=== PATIENT | female | born 1950 | race Caucasian/White ===

== ENCOUNTER 2020-07-26 09:38 | Day surgery (SDC) | payer MEDICARE, SELFPAY ==
[2020-07-22 15:35] VITALS: BMI 26.6
--- NOTE | 2020-07-24 12:37 | HO.ANESPROP2 ---
Documented by User: Alexa Bishop 07/24/20 12:38 HPI - Anesthesia Eval Consult details Narrative: 69yo F for Colonoscopy PMFSH Past Medical History Medical History Arthritis Cancer Elevated cholesterol Hepatitis HTN (hypertension) Thyroid disease Surgical History Surgical History H/O breast biopsy H/O: hysterectomy History of Hx of colonoscopy Social History Social History Smoking Status: Never smoker Use of substances other than those prescribed or required for medical reasons: No Have you been hit, kicked, punched, or otherwise hurt by someone within the past year? If so, by whom?: No Advance Directives Information Provided: No Recently lost weight without trying: No Meds Allergies Allergy/AdvReac Type Severity Reaction Status Date / Time niacin Allergy Hives Verified 07/22/20 15:43 atorvastatin [From Lipitor] AdvReac Muscle Verified 07/22/20 15:43 cramps ezetimibe [From Zetia] AdvReac Muscle Verified 07/22/20 15:43 cramps fenofibrate [From Tricor] AdvReac Muscle Verified 07/22/20 15:43 cramps pravastatin [From Pravachol] AdvReac Muscle Verified 07/22/20 15:43 cramps simvastatin [From Zocor] AdvReac Muscle Verified 07/22/20 15:43 cramps Home Medications Medication Instructions Recorded Confirmed Type calcium carbonate-vitamin D2 1 tab PO DAILY 07/22/20 07/22/20 History [Calcium + Vitamin D] cyclobenzaprine 10 mg PO TID PRN 07/22/20 07/22/20 History gabapentin 300 mg PO BID 07/22/20 07/22/20 History gabapentin 600 mg PO BEDTIME 07/22/20 07/26/20 History hydrochlorothiazide 12.5 mg PO DAILY 07/22/20 07/22/20 History ibuprofen 600 mg PO Q8H PRN 07/22/20 07/22/20 History levothyroxine 100 mcg PO DAILY 07/22/20 07/26/20 History rosuvastatin 5 mg PO DAILY 07/22/20 07/22/20 History Exam Exam Date and Time: July 24, 2020 1237 Height,Weight and Vital Signs: Height 5 ft 6 in Weight 74.843 kg Assessment and Plan Assessment Anesthesia Assessment: Chart Reviewed (07/24/20 HT) Documented by User: Diana Womack 07/26/20 10:30 PMF Past Medical History Medical History Arthritis Cancer Elevated cholesterol Hepatitis HTN (hypertension) Thyroid disease Family History Family history of problems with anesthesia: No Surgical History Surgical History H/O breast biopsy H/O: hysterectomy History of Hx of colonoscopy History of Problems with Anesthesia: No Social History Social History Smoking Status: Never smoker Use of substances other than those prescribed or required for medical reasons: No Have you been hit, kicked, punched, or otherwise hurt by someone within the past year? If so, by whom?: No Advance Directives Information Provided: No Recently lost weight without trying: No Meds Allergies Allergy/AdvReac Type Severity Reaction Status Date / Time niacin Allergy Hives Verified 07/22/20 15:43 atorvastatin [From Lipitor] AdvReac Muscle Verified 07/22/20 15:43 cramps ezetimibe [From Zetia] AdvReac Muscle Verified 07/22/20 15:43 cramps fenofibrate [From Tricor] AdvReac Muscle Verified 07/22/20 15:43 cramps pravastatin [From Pravachol] AdvReac Muscle Verified 07/22/20 15:43 cramps simvastatin [From Zocor] AdvReac Muscle Verified 07/22/20 15:43 cramps Home Medications Medication Instructions Recorded Confirmed Type calcium carbonate-vitamin D2 1 tab PO DAILY 07/22/20 07/22/20 History [Calcium + Vitamin D] cyclobenzaprine 10 mg PO TID PRN 07/22/20 07/22/20 History gabapentin 300 mg PO BID 07/22/20 07/22/20 History gabapentin 600 mg PO BEDTIME 07/22/20 07/26/20 History hydrochlorothiazide 12.5 mg PO DAILY 07/22/20 07/22/20 History ibuprofen 600 mg PO Q8H PRN 07/22/20 07/22/20 History levothyroxine 100 mcg PO DAILY 07/22/20 07/26/20 History rosuvastatin 5 mg PO DAILY 07/22/20 07/22/20 History Exam Height,Weight and Vital Signs: Vital Signs Temp Pulse Resp BP Pulse Ox 07/26/20 10:05 98 F 102 H 18 169/88 H 98 Airway Mallampati Class: II TM Dist: >3cm Neck ROM: Full Loose/Missing/Broken Teeth: No Heart: RRR Lungs: CTAB Other: Assessment and Plan Assessment Anesthesia Assessment: Anesthesia Plan Discussed, Consent Obtained and Chart Reviewed Final Anesthetic Review NPO: Yes Intake Type: Clears Intake Timing: Greater than 8 hours and Solids Intake Timing: Greater than 8 hours ASA Class: II Final Preanesthetic Review: No Changes in Pt Med Stat, Meds & Allergies Reviewed, Consent Obtained/Reviewed, Med/Surg/Anes Hx Reviewed and Anes Risks/Benef Reviewed Patient Risk: Low Procedure Risk: Low Anesthetic Plan Anesthetic Plan: MAC: Disposition: Standard PACU
[2020-07-26 10:05] VITALS: BP 169/88; PULSE 102; RESP 18; TEMP 36.6; O2SAT 98
[2020-07-26] MEDS: Lactated Ringers 1,000 ML 100 ML IVCONT (10:18)
[2020-07-26 10:30] VITALS: BP 137/81; PULSE 88; RESP 18; TEMP 36.1; O2SAT 99
[2020-07-26 11:08] VITALS: BP 94/59; PULSE 83; RESP 18; TEMP 36.1; O2SAT 97
--- NOTE | 2020-07-26 11:50 | HO.POSTANES ---
Post Anesthesia Evaluation Post Anesthesia Evaluation Vital Signs: Vital Signs Temp Pulse Resp BP Pulse Ox 07/26/20 11:08 97 F 83 18 94/59 L 97 07/26/20 10:30 97 F 88 18 137/81 99 07/26/20 10:05 98 F 102 H 18 169/88 H 98 Anesthesia: Monitored Mental Status: Awake Pain Control: Satisfactory Nausea/Vomiting: None Hydration: Adequate Anesthesia-Related Issues: No Anes. Related Issues
--- NOTE | 2020-07-26 12:29 | OP_ITS ---
SURGEON: Bk Cruz MD INDICATIONS: Colon cancer screening with prior history of adenomatous colon polyps. PREOPERATIVE DIAGNOSIS: POSTOPERATIVE DIAGNOSIS: PROCEDURE PERFORMED: Colonoscopy to the terminal ileum. ESTIMATED BLOOD LOSS: COMPLICATIONS: ANESTHESIA: Monitored anesthesia care. ASSISTANTS: SPECIMENS: DESCRIPTION OF PROCEDURE: History and physical performed. The risks and benefits of the procedure were explained to the patient. Informed consent was obtained. The patient was placed in the left lateral decubitus position. A digital rectal exam was performed and was found to be normal. The Olympus pediatric video colonoscope was introduced into the rectum and advanced to the cecum without difficulty. The cecum was identified by transillumination, palpation, and identification of ileocecal valve. Examination was performed. The scope was removed. She tolerated the procedure well and was returned to the recovery area in stable condition. FINDINGS: The terminal ileum was normal. The visualized colonic mucosa was within normal limits without evidence of masses or ulcers. No polyps were identified. The quality of prep was good. Retroflexed examination showed some hypertrophic anal papillae and small internal hemorrhoids. IMPRESSION: Normal colonoscopy. RECOMMENDATION: 1. Follow up as needed. 2. Repeat colonoscopy is recommended in 5 years because of prior history of colon polyps. This is optional based on the patient's age. MD FAYE Williamson/COLE / [id number]
== END 2020-07-26 11:57 | disposition home or self-care (01) ==
PROVIDERS: PCP Internal Medicine Geriatric Medicine; Visit Provider Internal Medicine Gastroenterology
PROC: 0DJD8ZZ Inspection of Lower Intestinal Tract, Via Natural or Artificial Opening Endoscopic (ICD-10-PCS; CPT 45378; principal; 2020-07-26 10:50)
DX: Z12.11 Encounter for screening for malignant neoplasm of colon (principal); Z86.010 Personal history of colon polyps; K64.8 Other hemorrhoids; K62.89 Other specified diseases of anus and rectum; I10 Essential (primary) hypertension; E78.00 Pure hypercholesterolemia, unspecified; Z79.899 Other long term (current) drug therapy; Z88.8 Allergy status to other drugs, medicaments and biological substances
CPT/HCPCS: G0105